=== PATIENT | male | born 1970 | race African-American/Black ===

== ENCOUNTER 2021-01-23 17:50 | Emergency (ER) | payer OTHER ==
[2021-01-23 18:14] VITALS: BP 140/103; PULSE 116; TEMP 98.2; BMI 25.4
[2021-01-23] MEDS ORDERED: LIDOCAINE 5% TOPICAL PATCH TP ONE (18:41)
[2021-01-23] MEDS ORDERED: KETOROLAC TROMETHAMINE 30 MG/1 ML VIAL IM ONE (18:41)
[2021-01-23] MEDS ORDERED: LIDOCAINE 5% TOPICAL PATCH ONE (18:44)
[2021-01-23] MEDS ORDERED: KETOROLAC TROMETHAMINE 30 MG/1 ML VIAL ONE (18:44)
[2021-01-23] MEDS ORDERED: LIDOCAINE PATCH REMOVAL MC SCH (22:00)
== END 2021-01-23 21:35 | disposition home or self-care (01) ==
LOC: JERFT 17:50
PROC: 3E023GC Introduction of Other Therapeutic Substance into Muscle, Percutaneous Approach (ICD-10-PCS; principal; 2021-01-23)
DX: M54.5 Low back pain (principal)
CPT/HCPCS: 99284-25